=== PATIENT | male | born 1970 | race Caucasian/White ===

== ENCOUNTER 2023-08-06 16:47 | Emergency (ER) | payer OTHER ==
[~2023-08-06] VITALS: Ht 177.8 cm; Wt 95.3 kg
[2023-08-06 18:06] LABS: BASOPHILS % (AUTO) 0.3 % (0.0-2.0); EOSINOPHILS # (AUTO) 0.1 K/uL (0.0-0.7); EOSINOPHILS % (AUTO) 1.3 % (0.0-6.0); HEMATOCRIT 45 % (39-51); HEMOGLOBIN 15.1 g/dL (13.5-17.5); LYMPHOCYTES # (AUTO) 1.3 K/uL (0.8-4.8); MEAN CORPUSCULAR HEMOGLOBIN 29 PG (26.0-33.0); MEAN CORPUSCULAR HGB CONC 34 g/dl (31.0-36.0); MEAN CORPUSCULAR VOLUME 85 fL (80-96); MONOCYTES # (AUTO) 0.4 K/uL (0.1-1.30); MONOCYTES % (AUTO) 5.5 % (2.0-12.0); NEUTROPHILS # (AUTO) 6.1 K/uL (1.8-8.9); NEUTROPHILS % (AUTO) 76.9 % (43.0-81.0); PLATELET COUNT (AUTO) 242 K/uL (150-450); RED BLOOD CELL COUNT(AUTO) 5.28 MIL/uL (4.5-6.0); RED CELL DISTRIBUTION WIDTH 12.6 % (11.5-15.0); WHITE BLOOD COUNT (AUTO) 7.9 K/uL (4.3-11.0)
[2023-08-06 18:26] LABS: CREATININE 0.9 mg/dL (0.6-1.3)
[2023-08-06 18:27] LABS: CALCIUM, SERUM 9.6 mg/dL (8.5-10.1)
[2023-08-06 20:57] VITALS: BP 152/99; TEMP 98.1; O2SAT 96
== END 2023-08-06 20:57 | disposition home or self-care (01) ==
LOC: ER 16:52
DX: I10 Essential (primary) hypertension (principal); R51.9 Headache, unspecified
CPT/HCPCS: 36415; 70450-TC; 80048-TC; 85025-TC